=== PATIENT | female | born 1995 | race Caucasian/White ===

== ENCOUNTER 2016-12-01 08:19 | Emergency (ER) | payer OTHER ==
[~2016-12-01] VITALS: Ht 180.3 cm; Wt 104.3 kg
[~2016-12-01 08:19] MED LIST: CLARITIN-D 12 H1 TAB PO; DEPO PROVER150 MG/M1 IM; FLONASE ALLERG9.9 ML NAS; Fioricet 325 MG1 TAB PO; MACROBID100 M1 PO; MACRODANTIN100 MG PO; MOTRIN800 MG PO; PERCOCET 325 MG1 TA6 PO; PREDNISONE10 MG PO; PRENATAL1 TA1 PO; PYRIDIUM200 M1 PO; ROBITUSSIN AC 110 ML PO; ZITHROMAX Z PA250 MG PO; ZOFRAN ODT4 MG SL
[2016-12-01 08:43] LABS: BILIRUBIN NEGATIVE (NEGATIVE); BLOOD NEGATIVE (NEGATIVE); CLARITY CLEAR (CLEAR); COLOR YELLOW (YELLOW); GLUCOSE NEGATIVE (NEGATIVE); KETONE NEGATIVE (NEGATIVE); LEUKO ESTERASE TRACE (NEGATIVE); NITRITE NEGATIVE (NEGATIVE); PH 6.5 (5.0-9.0); PROTEIN NEGATIVE (NEGATIVE)
[2016-12-01 09:12] LABS: BACTERIA 1+; URINE REFLEX COMMENT YES (NO)
== END 2016-12-01 09:35 | disposition home or self-care (01) ==
LOC: ED 08:19
PROVIDERS: Emergency Medicine
DX: A59.01 Trichomonal vulvovaginitis (principal); Z88.2 Allergy status to sulfonamides; Z88.6 Allergy status to analgesic agent; Z79.899 Other long term (current) drug therapy

== ENCOUNTER → 2023-02-16 | Day surgery (SDC) | payer OTHER ==
[2023-02-11 13:32] VITALS: BP 134/81
[~2023-02-16] VITALS: Ht 180.3 cm; Wt 108.9 kg
[2023-02-16] VITALS (7 sets, daily range): BP systolic 104–140; BP diastolic 53–86
[~2023-02-16] MED LIST changes: +MIXED AMPHETAMI15 MG PO; +MONTELUKAST SOD10 MG PO
== END ==
LOC: SDC 02-11 13:15
PROVIDERS: ATTEND Obstetrics & Gynecology
DX: Z30.2 Encounter for sterilization (principal); F17.200 Nicotine dependence, unspecified, uncomplicated

== ENCOUNTER 2024-03-25 00:21 | Emergency (ER) | payer OTHER ==
[~2024-03-25] VITALS: Ht 180.3 cm; Wt 104.3 kg
[2024-03-25] MEDS ORDERED: CEPHALEXIN 500 MG CAP PO ONE (00:50)
[2024-03-25] MEDS ORDERED: Dexamethasone Sodium Phospha 20 MG/5 ML VIAL IM ONE (00:50)
[2024-03-25] MEDS ORDERED: CEPHALEXIN500 M1 PO (00:53)
[2024-03-25] MEDS ORDERED: MEDROL DOSEPAK4 MG PO (00:53)
[2024-03-25] MEDS ORDERED: KENALOG 0.025%15 GM T (00:53)
== END 2024-03-25 01:04 | disposition home or self-care (01) ==
LOC: ED 00:21
DX: S80.862A Insect bite (nonvenomous), left lower leg, initial encounter (principal); S80.861A Insect bite (nonvenomous), right lower leg, initial encounter; S40.862A Insect bite (nonvenomous) of left upper arm, initial encounter; S40.861A Insect bite (nonvenomous) of right upper arm, initial encounter; J45.909 Unspecified asthma, uncomplicated; Z88.2 Allergy status to sulfonamides; Z88.5 Allergy status to narcotic agent; W57.XXXA Bitten or stung by nonvenomous insect and other nonvenomous arthropods, initial encounter; Y93.89 Activity, other specified; Y92.89 Other specified places as the place of occurrence of the external cause; Y99.8 Other external cause status

== ENCOUNTER 2024-05-02 23:32 | Emergency (ER) | payer OTHER ==
[~2024-05-02] VITALS: Ht 180.3 cm; Wt 106.6 kg
[~2024-05-02 23:32] MED LIST changes: +CEPHALEXIN500 M1 PO; +KENALOG 0.025%15 GM T; +MEDROL DOSEPAK4 MG PO
[2024-05-03 01:20] LABS: BILIRUBIN Negative (Negative); BLOOD Negative (Negative); CLARITY Clear (Clear); COLOR Dark Yellow (Yellow); GLUCOSE Negative (Negative); HEMATOCRIT 33.4 % (37.0-47.0); KETONE Trace (Negative); LEUKO ESTERASE Negative (Negative); MEAN CELL VOLUME 94.6 fl (81.0-99.0); MEAN CORPUSCULAR HGB CONC 31.7 g/dl (33.0-37.0); MEAN PLATELET VOLUME 11.5 fl (9.6-12.3); NITRITE Negative (Negative); PLATELET COUNT AUTOMATED 152 10*3/uL (130-400); RED BLOOD COUNT 3.53 10*6/uL (4.10-5.10); RED CELL DISTRI WIDTH 12.9 % (0-14.5); SPECIFIC GRAVITY >= 1.030 (1.001-1.030); WHITE BLOOD COUNT 4.1 10*3/uL (4.8-10.8)
[2024-05-03 01:25] LABS: MANUAL DIFF REFLEX YES
[2024-05-03 01:27] LABS: EPITHELIAL CELLS 16-20
[2024-05-03 01:28] LABS: RBC 0-2 rbc/hpf (0-2)
[2024-05-03 01:39] LABS: BUN 12 mg/dl (9-23); CHLORIDE 108 mmol/L (98-107)
[2024-05-03 02:11] LABS: BASOPHILS 1 % (0-1); PLATELET SUFFICIENCY NORMAL (NORMAL); TOTAL CELLS COUNTED 100 #CELLS
== END 2024-05-03 03:26 | disposition home or self-care (01) ==
LOC: ED 23:32
PROVIDERS: Emergency Medicine
DX: M79.10 Myalgia, unspecified site (principal); R70.0 Elevated erythrocyte sedimentation rate; J45.909 Unspecified asthma, uncomplicated; Z88.2 Allergy status to sulfonamides; Z88.5 Allergy status to narcotic agent

== ENCOUNTER → 2024-05-05 | Outpatient (CLI) | payer OTHER ==
[2024-05-05 12:55] LABS: BASO % 0.6 % (0.0-1.0); EOS # 0.4 10*3/uL (0.0-0.4); HEMATOCRIT 33.6 % (37.0-47.0); LYMPH # 1.2 10*3/uL (1.3-4.4); LYMPH % 22.2 % (27.0-41.0); MEAN CELL VOLUME 91.8 fl (81.0-99.0); MEAN CORPUSCULAR HGB 30.3 pg (27.0-31.0); MEAN PLATELET VOLUME 10.7 fl (9.6-12.3); MONO # 0.6 10*3/uL (0.1-1.0); MONO % 10.4 % (3.0-9.0); NEUT # 3.2 10*3/uL (2.3-7.9); NEUT % 59.6 % (47.0-73.0); PLATELET COUNT AUTOMATED 205 10*3/uL (130-400); RED BLOOD COUNT 3.66 10*6/uL (4.10-5.10); RED CELL DISTRI WIDTH 12.5 % (0-14.5); WHITE BLOOD COUNT 5.3 10*3/uL (4.8-10.8)
[2024-05-05 13:24] LABS: ALKALINE PHOSPHATASE 44 U/L (46-116); BUN 9 mg/dl (9-23); CHLORIDE 107 mmol/L (98-107); FREE T4 1.26 ng/dl (0.89-1.76); SGPT/ALT 11 U/L (5-49); TOTAL PROTEIN 7.1 gm/dL (6.0-8.0); URIC ACID 4.5 mg/dL (3.1-7.8)
== END | disposition home or self-care (01) ==
LOC: LAB 12:36
PROVIDERS: ATTEND Internal Medicine Nephrology
DX: R80.8 Other proteinuria (principal)

== ENCOUNTER → 2024-05-12 | Outpatient (CLI) | payer OTHER ==
[2024-05-13 13:07] LABS: CCP ANTIBODIES IGG/IGA 8 units (0-19)
[2024-05-13 14:09] LABS: ANTI-DSDNA ANTIBODIES 9 IU/mL (0-9); ANTISCLERODERMA-70 AB <0.2 AI (0.0-0.9); SJOGREN ANTI-SS-A 1.1 AI (0.0-0.9); SJOREN AB, ANTI-SS-B <0.2 AI (0.0-0.9)
== END | disposition home or self-care (01) ==
LOC: LAB 13:38
PROVIDERS: ATTEND Internal Medicine
DX: M54.50 Low back pain, unspecified (principal); J30.2 Other seasonal allergic rhinitis

== ENCOUNTER → 2024-11-02 | Outpatient (CLI) | payer OTHER ==
[2024-11-02 13:38] LABS: HEMATOCRIT 37.8 % (37.0-47.0); MEAN CELL VOLUME 91.5 fl (81.0-99.0); MEAN CORPUSCULAR HGB 29.8 pg (27.0-31.0); MEAN CORPUSCULAR HGB CONC 32.5 g/dl (33.0-37.0); PLATELET COUNT AUTOMATED 150 10*3/uL (130-400); RED BLOOD COUNT 4.13 10*6/uL (4.10-5.10); WHITE BLOOD COUNT 3.9 10*3/uL (4.8-10.8)
[2024-11-02 13:39] LABS: MANUAL DIFF REFLEX YES
[2024-11-02 14:04] LABS: ALKALINE PHOSPHATASE 47 U/L (46-116); BUN 9 mg/dl (9-23); CHLORIDE 108 mmol/L (98-107); POTASSIUM 4.3 mmol/L (3.4-5.1); SGPT/ALT 14 U/L (5-49); TOTAL PROTEIN 7.4 gm/dL (6.0-8.0)
[2024-11-02 15:40] LABS: ATYPICAL LYMPHS 5 % (0-0); BASOPHILS 1 % (0-1); TOTAL CELLS COUNTED 100 #CELLS
[2024-11-02 15:41] LABS: PLATELET SUFFICIENCY NORMAL (NORMAL)
[2024-11-03 16:08] LABS: A/G RATIO 0.9 (0.7-1.7); ALBUMIN 3.5 g/dL (2.9-4.4); ALPHA-1-GLOBULIN 0.2 g/dL (0.0-0.4); ALPHA-2-GLOBULIN 0.6 g/dL (0.4-1.0); BETA GLOBULIN 0.9 g/dL (0.7-1.3); GLOBULIN, TOTAL 3.7 g/dL (2.2-3.9)
[2024-11-04 15:07] LABS: A/G RATIO 1.1 (0.7-1.7); ALBUMIN 3.6 g/dL (2.9-4.4); ALPHA-1-GLOBULIN 0.2 g/dL (0.0-0.4); ALPHA-2-GLOBULIN 0.6 g/dL (0.4-1.0); BETA GLOBULIN 0.8 g/dL (0.7-1.3); FREE KAPPA LIGHT CHAINS 91.9 mg/L (3.3-19.4); FREE LAMBDA LIGHT CHAINS 78.3 mg/L (5.7-26.3); GLOBULIN, TOTAL 3.6 g/dL (2.2-3.9); IMMUNOGLOBULIN G, Qn 2049 mg/dL (586-1602); IMMUNOGLOBULIN M, Qn 144 mg/dL (26-217); K/L RATIO 1.17 (0.26-1.65); M-SPIKE Not Observed g/dL (Not Observed)
== END | disposition home or self-care (01) ==
LOC: LAB 13:13
PROVIDERS: ATTEND Nurse Practitioner Adult Health
DX: D47.2 Monoclonal gammopathy (principal)